=== PATIENT | female | born 1990 | race Caucasian/White ===

== ENCOUNTER 2020-12-04 01:41 | Emergency (ER) | payer OTHER ==
[2020-12-04 01:50] VITALS: BP 122/77; PULSE 99; RESP 19; TEMP 97.9
--- NOTE | 2020-12-04 02:20 | ED ---
Female Urogenital HPI - General Chief complaint: Vaginal Bleeding Stated complaint: Vaginal bleeding, 17 wks preg Time Seen by Provider: 12/04/20 01:46 Source: patient, RN notes reviewed, old records reviewed Mode of arrival: ambulatory Limitations: no limitations - History of Present Illness Initial comments: This is a 30-year-old female to the emergency room today. Patient presents today for evaluation of abdominal pain and . Patient did have bleeding that started about a half hour prior to arrival during sexual intercourse. Patient states the bleeding was significant but she has no pain. MD Complaint: vaginal bleeding -: minutes(s) Location: suprapubic Radiation: suprapubic Severity: mild Severity scale (1-10): 1 Quality: cramping Consistency: now resolved Improves with: none Worsens with: none Patient : Yes Number of weeks : 18 Associated Symptoms: vaginal bleeding - Related Data Sexually active: Yes Allergies Allergy/AdvReac Type Severity Reaction Status Date / Time erythromycin base Allergy Anaphylaxis Verified 12/04/20 01:50 naproxen AdvReac Rash/Hives Verified 12/04/20 01:50 Review of Systems ROS Statement: Those systems with pertinent positive or pertinent negative responses have been documented in the HPI. ROS Other: All systems not noted in ROS Statement are negative. Past Medical History Additional Past Medical History / Comment(s): MS History of Any Multi-Drug Resistant Organisms: None Reported Past Surgical History: Adenoidectomy, Cholecystectomy, Hernia Repair, Tonsillectomy Past Psychological History: No Psychological Hx Reported Smoking Status: Never smoker Past Alcohol Use History: None Reported Past Drug Use History: None Reported General Exam General appearance: alert, in no apparent distress Head exam: Present: atraumatic, normocephalic, normal inspection Eye exam: Present: normal appearance, PERRL, EOMI. Absent: scleral icterus, conjunctival injection, periorbital swelling ENT exam: Present: normal exam, mucous membranes moist Neck exam: Present: normal inspection. Absent: tenderness, meningismus, lymphadenopathy Respiratory exam: Present: normal lung sounds bilaterally. Absent: respiratory distress, wheezes, rales, rhonchi, stridor Cardiovascular Exam: Present: regular rate, normal rhythm, normal heart sounds. Absent: systolic murmur, diastolic murmur, rubs, gallop, clicks GI/Abdominal exam: Present: soft, normal bowel sounds. Absent: distended, tenderness, guarding, rebound, rigid Extremities exam: Present: normal inspection, full ROM, normal capillary refill. Absent: tenderness, pedal edema, joint swelling, calf tenderness Back exam: Present: normal inspection Neurological exam: Present: alert, oriented X3, CN II-XII intact Psychiatric exam: Present: normal affect, normal mood Skin exam: Present: warm, dry, intact, normal color. Absent: rash Course Vital Signs 12/04/20 01:46 Temperature 97.9 F Pulse Rate 99 Respiratory 19 Rate Blood Pressure 122/77 O2 Sat by Pulse 98 Oximetry - Reevaluation(s) Reevaluation #1: 12/04/20 02:16 Medical record is reviewed Reevaluation #2: 12/04/20 02:16 Spoke patient length regarding findings here in the ER, questions answered Reevaluation #3: 12/04/20 02:16 Patient does not appear to be exsanguinating with no significant bleeding Medical Decision Making - Medical Decision Making 30 female to the emergency department for evaluation today. Patient presents with minimal vaginal bleeding of . A bedside ultrasound does have heart rate heart which is documented here in the emergency department. Patient was on honeymoon and having sex prior to arrival and the emergency department. Patient does not appear to be significantly here in the ER is a symptomatically no lightheadedness or dizziness. Patient is not having contractions no abdominal pain or cramping - Lab Data Lab Results 12/04/20 Range/Units 02:09 Urine Color Yellow Urine Appearance Cloudy H (Clear) Urine pH 5.5 (5.0-8.0) Ur Specific [facility] 1.017 (1.001-1.035) Urine Protein 1+ H (Negative) Urine Glucose (UA) Negative (Negative) Urine Ketones Trace H (Negative) Urine Blood Large H (Negative) Urine Nitrite Negative (Negative) Urine Bilirubin Negative (Negative) Urine Urobilinogen <2.0 (<2.0) mg/dL Ur Leukocyte Esterase Moderate H (Negative) Urine RBC 121 H (0-5) /hpf Urine WBC 29 H (0-5) /hpf Ur Squamous Epith Cells 6 H (0-4) /hpf Urine Bacteria Rare H (None) /hpf Urine Mucus Occasional H (None) /hpf - Radiology Data Radiology results: image reviewed (I did perform bedside ultrasound showing positive heart rate) Disposition Clinical Impression: Vaginal bleeding during Disposition: HOME SELF-CARE Condition: Good Instructions (If sedation given, give patient instructions): (ED), Dysfunctional Uterine Bleeding (ED) Is patient prescribed a controlled substance at d/c from ED?: No Referrals: Nonstaff,Physician [Primary Care Provider] - 1-2 days
[2020-12-04 02:45] LABS: Appearance,Urine Cloudy (Clear); Bacteria,Urine Rare /hpf; Bilirubin,Urine Negative (Negative); Blood,Urine Large (Negative); Color,Urine Yellow; Glucose,Urine (UA) Negative (Negative); Ketones,Urine Trace (Negative); Leukocyte Esterase,Urine Moderate (Negative); Mucus,Urine Occasional /hpf; Nitrite,Urine Negative (Negative); PH, Urine 5.5 (5.0-8.0); Protein,Urine 1+ (Negative); RBC,Urine 121 /hpf (0-5); Specific Gravity,Urine 1.017 (1.001-1.035); Squamous Epithelial Cell,Urine 6 /hpf (0-4); Urobilinogen,Urine <2.0 mg/dL (<2.0); WBC,Urine 29 /hpf (0-5)
== END 2020-12-04 02:50 | disposition home or self-care (01) ==
LOC: EC 01:41
DX: O20.9 Hemorrhage in early pregnancy, unspecified (principal); Z3A.17 17 weeks gestation of pregnancy; Z88.1 Allergy status to other antibiotic agents; Z88.6 Allergy status to analgesic agent
CPT/HCPCS: 81001; 87086; 99284